=== PATIENT | female | born 1955 | race Caucasian/White ===

== ENCOUNTER 2017-10-10 15:42 | Outpatient (CLI) ==
--- NOTE | 2017-10-10 16:25 | US ---
Exam: Nelson-scale and color Doppler ultrasonographic evaluation of the right lower extremity venous s tructures. Comparison: None available. Reason for exam: Pain in right leg. FINDINGS: There is spontaneous flow with adequate compression and augmentation in the right common f emoral, greater saphenous, profunda, superficial femoral, popliteal, peroneal, posterior tibial, and anterior tibial veins. There is an incidental note of a 5.1 x 0.9 x 2.58 cm complex appearing hypodensity in the right popli teal fossa. Impression: 1. No ultrasonographic evidence of deep venous thrombus in the right lower extremity. 2. 5 cm right popliteal fossa Camilo's cyst.
== END 2017-10-10 15:43 | disposition home or self-care (01) ==
LOC: RAD 15:42
PROVIDERS: ATTEND General Practice
DX: M79.604 Pain in right leg (principal); M79.89 Other specified soft tissue disorders
CPT/HCPCS: 36415; 85379

== ENCOUNTER 2017-10-25 09:37 | Outpatient (CLI) ==
--- NOTE | 2017-10-25 09:59 | DI ---
EXAM: Radiographs, right knee HISTORY: Right knee pain. COMPARISON: None available. TECHNIQUE: Four views. FINDINGS: Right total knee arthroplasty hardware components appear well seated. No fracture or disl ocation identified. No localized soft tissue abnormality is seen. IMPRESSION: No acute abnormality of the right knee.
== END 2017-10-25 09:38 | disposition home or self-care (01) ==
LOC: RAD 09:37
PROVIDERS: ATTEND General Practice
DX: M79.604 Pain in right leg (principal); M79.89 Other specified soft tissue disorders

== ENCOUNTER 2017-10-30 13:28 | Outpatient (CLI) ==
--- NOTE | 2017-10-30 15:56 | MRI ---
EXAM: MRI of the right lower extremity without contrast COMPARISON: Right knee radiographs 10/25/2017. Right lower extremity venous Doppler 10/10/2017. HISTORY: Right calf pain and swelling. Bilateral knee replacement. TECHNIQUE: Multiplanar noncontrast MR images of the right tibia/fibular were acquired using a 1.2 [place] magnet. Large field of view imaging was employed on the axial and coronal sequences with inclusi on both right and left calves in the field of view with sagittal images obtained only through the rig ht calf. FINDINGS: There is susceptibility artifact related to the patient's bilateral knee replacements. No evidence of an acute fracture, osteomyelitis or focal marrow lesion. There is a strain/contusion involving the medial head the right gastrocnemius with low grade partial tear of the muscle anteriorly. 3.5 x 1.5 x 0.6 cm T2 hyperintense focus intervening between the medi al head the right gastrocnemius and soleus anteriorly with thin component extending along the surface of the medial head of the gastrocnemius within the proximal to mid calf, favoring a small evolving h ematoma. Thin fluid collection extends posteromedially through the level of the knee and sequela of previous popliteal cyst rupture is a differential consideration at that level. Mild muscle atrophy. Subcutaneous edema and ill-defined subcutaneous fluid throughout the calves bilaterally. No focal s oft tissue ulcer. IMPRESSION: 1. Strain/contusion with partial tear of the medial head of the right gastrocnemius with small evolv ing hematoma. Thin fluid collection extends along the surface of the medial head of the gastrocnemiu s through the level of the knee and sequela of previous popliteal cyst rupture is a differential cons ideration. 2. No acute osseous abnormality. Postoperative changes of the knees. 3. Mild muscle atrophy. 4. Subcutaneous edema.
== END 2017-10-30 13:29 | disposition home or self-care (01) ==
LOC: RAD 13:28
PROVIDERS: ATTEND General Practice
DX: M79.604 Pain in right leg (principal); M79.89 Other specified soft tissue disorders